=== PATIENT | male | born 1960 | race Caucasian/White ===

== ENCOUNTER 2025-06-12 11:54 | Emergency (ER) | payer OTHER ==
[~2025-06-12] VITALS: Ht 188 cm; Wt 86.2 kg
[2025-06-12 11:57] VITALS: O2SAT 100
[2025-06-12] MEDS: TETANUS, DIPHTHERIA, PERTUSSIS VAC/PF 0.5ML (>10YR OLD) IM ONE (15:00)
[2025-06-12] MEDS: BACITRACIN ZINC OINT UDPKT TOP ONE (15:29)
[2025-06-12] MEDS: LIDOCAINE HCL 1% 20ML VIAL INFIL ONE (15:29)
[2025-06-12] MEDS: IBUPROFEN 600MG TABLET PO ONE (15:29)
[2025-06-12] MEDS ORDERED: BO1 TP (16:09)
[2025-06-12 16:38] VITALS: BP 130/84; PULSE 60; RESP 20; TEMP 36.8; O2SAT 100
== END 2025-06-12 16:39 | disposition home or self-care (01) ==
LOC: ER 11:54
DX: S61.211A Laceration without foreign body of left index finger without damage to nail, initial encounter (principal); Z98.890 Other specified postprocedural states; W26.0XXA Contact with knife, initial encounter; Y93.89 Activity, other specified; Y92.89 Other specified places as the place of occurrence of the external cause; Y99.8 Other external cause status
CPT/HCPCS: 99283; 90715; 12001; 90471; J2003